=== PATIENT | male | born 1985 | race Caucasian/White ===

== ENCOUNTER 2018-01-08 15:27 | Emergency (ER) | payer MEDICAID, SELFPAY ==
--- NOTE | 2018-01-08 15:20 | RAD_ITS ---
STUDY: X-RAY - RIGHT HAND REASON FOR EXAM: Male, 32 years old. Worsening proximal second and third metacarpal pain after injury. TECHNIQUE: 3 view(s) of the hand. COMPARISON: None. FINDINGS: Normal radiocarpal articulation. Normal distal radioulnar joint. Normal visualized carpal bones. Normal carpal articulations Normal carpometacarpal articulation of the thumb. Normal second through fifth carpometacarpal joints. Normal metacarpi. Normal metacarpophalangeal joint of the thumb. Normal interphalangeal joint of the thumb. Normal proximal and distal phalanges of the thumb. Normal metacarpophalangeal joints of the second through fifth fingers. Normal proximal and distal interphalangeal joints of the second through fifth fingers. Normal phalanges of the second through fifth fingers. There is minor dorsal soft tissue swelling along the heads of the metacarpals as well as minor soft tissue swelling of the second and third fingers. There is no demonstrated osseous destructive lesion or fracture. RAD/Hand Min 3 Views IMPRESSION: No acute osseous abnormality of the right hand. Electronically Signed: Jason Henry MD at 16:16 EST , Service support ,
[2018-01-08 15:29] VITALS: BP 121/73; PULSE 61; RESP 16; TEMP 36.6; O2SAT 97; BMI 21.9
--- NOTE | 2018-01-08 16:47 | ED.VISSUMM ---
- ER Visit Summary Date of Service: 01/08/18 Chief Complaint: [Pain right hand] History of Present Illness: The patient is a 32 M [presents with pain since yesterday to his right hand. Patient states that he was moving 5 days ago and is not sure if he bumped it or injured it at that time. Patient is right-hand dominant. Patient also had a fracture a year ago in the similar area of his pain.] Physical Examination: [Hand-patient has tenderness over the dorsum of the proximal hand and wrist. There is no significant soft tissue swelling noted or erythema. There is no warmth noted. Patient has pain with flexion extension at the wrist. He is neurovascular intact distally.] Test Results: [X-ray ordered in triage of the right hand showed nothing acute.] Emergency Department Course and Treatment: [Patient will be given a wrist splint. Patient also given a prescription for Naprosyn and a few [place] for severe pain.] Treatment Plan: [Patient to follow-up with primary care physician aeronautical design engineer for no doc within the next 5-7 days.] Disposition: [Discharged to home in stable condition. Patient advised to return if increasing pain, swelling, or condition should worsen in any way.] Impression: [Right hand/wrist pain-suspect tendinitis/soft tissue injury.] This note was generated with [employer] dictation software. It may contain incorrect words, spelling, and punctuation that were not noted in review of the chart prior to signing ED Disposition - Plan for ED Patient: Chief Complaint: Upper Extremity Injury Referrals: Care Physician,No Primary [Primary Care Provider] -
--- NOTE | 2018-01-08 16:50 | ED.DCSUM_ITS ---
- ER Visit Summary Date of Service: 01/08/18 Chief Complaint: [Pain right hand] History of Present Illness: The patient is a 32 M [presents with pain since yesterday to his right hand. Patient states that he was moving 5 days ago and is not sure if he bumped it or injured it at that time. Patient is right-hand dominant. Patient also had a fracture a year ago in the similar area of his pain.] Physical Examination: [Hand-patient has tenderness over the dorsum of the proximal hand and wrist. There is no significant soft tissue swelling noted or erythema. There is no warmth noted. Patient has pain with flexion extension at the wrist. He is neurovascular intact distally.] Test Results: [X-ray ordered in triage of the right hand showed nothing acute.] Emergency Department Course and Treatment: [Patient will be given a wrist splint. Patient also given a prescription for Naprosyn and a few [place] for severe pain.] Treatment Plan: [Patient to follow-up with primary care physician component assembler supervisor for no doc within the next 5-7 days.] Disposition: [Discharged to home in stable condition. Patient advised to return if increasing pain, swelling, or condition should worsen in any way.] Impression: [Right hand/wrist pain-suspect tendinitis/soft tissue injury.] This note was generated with [employer] dictation software. It may contain incorrect words, spelling, and punctuation that were not noted in review of the chart prior to signing ED Disposition - Plan for ED Patient: Chief Complaint: Upper Extremity Injury Referrals: Care Physician,No Primary [Primary Care Provider] -
--- NOTE | 2018-01-08 16:52 | DCINST.ED_ITS ---
ED Disposition - Plan for ED Patient: Chief Complaint: Upper Extremity Injury Instructions: ED Sprain Wrist Prescriptions: Hydrocodone Bitart/Apap 5-325 [[place] 5/325] 1 - 2 tab PO Q4H PRN PRN 3 Days #12 tab PRN Reason: Pain Naproxen [Naprosyn] 500 mg PO BID PRN #20 tab Referrals: Care Physician,No Primary [Primary Care Provider] - Josy Swain MD [STAFF PHYSICIAN] - 5-7 Days
[2018-01-08 16:59] VITALS: BP 115/70; PULSE 65; RESP 14; O2SAT 99
== END 2018-01-08 17:13 | disposition home or self-care (01) ==
LOC: ED 17:02
PROVIDERS: Emergency Provider Emergency Medicine
DX: M79.641 Pain in right hand (principal); M25.531 Pain in right wrist; Z72.0 Tobacco use
CPT/HCPCS: 73130; 99283

== ENCOUNTER 2018-02-18 14:05 | Emergency (ER) | payer MEDICAID, SELFPAY ==
[2018-02-18 14:06] VITALS: BP 116/71; PULSE 76; RESP 20; TEMP 36.7; O2SAT 94; BMI 20.6
[2018-02-18] MEDS: Albuterol 2.5 MG/3 ML VIAL.NEB. INHALATION (14:37)
[2018-02-18 14:38] VITALS: PULSE 72; RESP 20
--- NOTE | 2018-02-18 14:40 | RAD_ITS ---
STUDY: X-RAY CHEST REASON FOR EXAM: Male, 32 years old. 2 day history of shortness of breath. 5 day history of cough. TECHNIQUE: PA and lateral views of the chest. COMPARISON: Comparison is made with prior study dated August 07, 2017. FINDINGS: Hyperinflation. Increased markings in the right upper lobe suggestive of early right upper lobe infiltrate. Follow-up is recommended. There is no demonstrated pleural abnormality. Normal size heart. Normal mediastinum and sheron. Normal visualized pulmonary arteries. Normal visualized aortic arch and descending thoracic aorta. There is demineralization of the osseous structures. Normal visualized ribs, clavicles, and shoulders. There is no demonstrated abnormality of the visualized soft tissue structures of the upper abdomen. RAD/Chest PA and Lateral IMPRESSION: Increased markings in the right upper lobe suggestive of early right upper lobe infiltrate. Follow-up is recommended. Electronically Signed: Richie Stevens MD at 15:08 EDT Tel [phone], Service support ,
--- NOTE | 2018-02-18 15:03 | ED.VISSUMM ---
- ER Visit Summary Date of Service: 02/18/18 Chief Complaint: Cough History of Present Illness: The patient is a 32 M with no primary care physician. He reports his cough began 5 days ago. Is productive green sputum without blood. He denies any fever. Reports he has chest pain with coughing only. Reports that he has had mild shortness of breath and has been wheezing. He does not have an inhaler. States this is similar to when he had bronchitis in the past. Physical Examination: Vitals: Stable. Afebrile. General: Well-nourished and well-developed. Head: Normocephalic atraumatic. Neck: Supple, no lymphadenopathy. No JVD. Nontender. Cardiovascular: Regular rate and rhythm. No murmurs. Respiratory: No respiratory distress. Mild wheezing bilaterally with good air movement. Abdominal: Soft, nontender, nondistended, normal bowel sounds. No guarding, rebound, or peritoneal signs. Back: Nontender. Extremities: Nontender, no edema. Skin: Normal color, no rash. Neurologic: Alert and oriented ?3. Cranial nerves II through XII are intact. Normal strength and sensation. Psych: Normal affect. Test Results: Chest x-ray is read by me is normal. Radiologist comments that there is increased markings in the right upper lobe suggestive of early right upper lobe infiltrate. I do not appreciate any increased markings here. Emergency Department Course and Treatment: Patient was treated with albuterol aerosol and is resting comfortably. Treatment Plan: Patient will be discharged with prescription for albuterol MDI and prednisone. [facility]7 days if not improving. Return to the emergency department for any worsening symptoms. Disposition: To home in improved and stable condition. Impression: 1. URI. 2. History of asthma. This note was generated with [employer] dictation software. It may contain incorrect words, spelling, and punctuation that were not noted in review of the chart prior to signing ED Disposition - Plan for ED Patient: Disposition: Home or Assisted Living Chief Complaint: Shortness of Breath Instructions: ED Upper Resp Infec No Abx Tx Prescriptions: Albuterol Inhaler [Ventolin Hfa] 1 - 2 puff INHALATION Q4H PRN PRN #1 inhaler PRN Reason: Wheezing Prednisone [Deltasone] 60 mg PO DAILY #15 tablet Referrals: Eliane Haas [NON-STAFF] - 1 Week if not improving
[2018-02-18 15:13] VITALS: BP 113/72; PULSE 97; RESP 18; TEMP 36.6; O2SAT 93
== END 2018-02-18 15:15 | disposition home or self-care (01) ==
PROVIDERS: Emergency Provider Emergency Medicine
DX: J06.9 Acute upper respiratory infection, unspecified (principal); J45.909 Unspecified asthma, uncomplicated; Z72.0 Tobacco use
CPT/HCPCS: 71046; 94640; 99282

== ENCOUNTER → 2018-05-06 14:45 | Outpatient (CLI) | payer MEDICAID, SELFPAY ==
--- NOTE | 2018-05-06 14:47 | RAD_ITS ---
STUDY: X-RAY - RIGHT WRIST REASON FOR EXAM: Male, 32 years old. Pain following a fall. TECHNIQUE: 3 view(s) of the wrist were obtained. COMPARISON: None. FINDINGS: Normal visualized distal radius and ulna. Normal radiocarpal articulation. Normal distal radioulnar articulation. Normal carpal bones. Normal carpal articulations. Normal carpometacarpal articulation of the thumb. Normal second through fifth carpometacarpal articulations. Normal visualized metacarpal bones. The soft tissue structures are unremarkable. RAD/Wrist min 3 Views IMPRESSION: Normal x-ray examination of the wrist. Electronically Signed: Richie Stevens MD at 15:14 EDT Tel [phone], Service support ,
== END ==
PROVIDERS: Visit Provider Physician Assistant Surgical
DX: S66.911A Strain of unspecified muscle, fascia and tendon at wrist and hand level, right hand, initial encounter (principal)
CPT/HCPCS: 73110

== ENCOUNTER 2019-04-07 10:33 | Emergency (ER) | payer MEDICAID, SELFPAY ==
[2018-10-13 11:24] VITALS: BMI 20.7
[2019-04-07 10:34] VITALS: BP 126/79; PULSE 69; RESP 18; TEMP 36.6; O2SAT 98; BMI 19.8
--- NOTE | 2019-04-07 10:59 | ED.VISSUMM ---
- ER Visit Summary Date of Service: 04/07/19 Chief Complaint: Cat bite History of Present Illness: The patient is a 33 M with no primary care physician. He reports that he was bit to his right thumb by a cat approximately 1 week ago. He states that he continues to have a throbbing pain is 10-10 severity. Is worsened by nothing. Is relieved by popping it. He denies any numbness. He is right-hand dominant. His tetanus is up-to-date. Does complain of subjective fever. He denies any other constitutional symptoms. No chills, nausea, or vomiting. Physical Examination: Vitals: Stable. Afebrile. General: Well-nourished and well-developed. Head: Normocephalic atraumatic. Neck: Supple, no lymphadenopathy. No JVD. Nontender. Cardiovascular: Regular rate and rhythm. No murmurs. Respiratory: No respiratory distress. Clear to auscultation bilaterally. Abdominal: Soft, nontender, nondistended, normal bowel sounds. No guarding, rebound, or peritoneal signs. Back: Nontender. Extremities: Mild edema of the distal phalanx of his left thumb. Is moderately tender to palpation. There is no erythema. There is no evidence of a felon. He does have an approximately 10% subungual hematoma.. Skin: Normal color, no rash. Neurologic: Alert and oriented ?3. Cranial nerves II through XII are intact. Normal strength and sensation. Psych: Normal affect. Emergency Department Course and Treatment: Patient was treated with Augmentin and naproxen. There is not enough of a subungual hematoma to warrant trephination. Treatment Plan: Patient be discharged on Augmentin and naproxen. Instructed to follow-up Dr. Oliver in 2 days for a wound check. Return to the emergency department for any worsening symptoms. Disposition: To home in improved and stable condition. Impression: 1. Cat bite left thumb. This note was generated with [employer] dictation software. It may contain incorrect words, spelling, and punctuation that were not noted in review of the chart prior to signing ED Disposition - Plan for ED Patient: Disposition: Home or Assisted Living Instructions: ED Bite Cat Prescriptions: Amox/Clavulanate Tablet [Augmentin Tablet] 875 mg PO Q12H #20 tablet Naproxen [Naprosyn] 500 mg PO BID #14 tablet Referrals: Reyna Oliver DO [STAFF PHYSICIAN] - 2 Days for wound check
[2019-04-07] MEDS: Amox/Clavulanate 875 MG Tablet PO (11:12)
[2019-04-07] MEDS: Naproxen 500 MG Tablet PO (11:12)
== END 2019-04-07 11:26 | disposition home or self-care (01) ==
PROVIDERS: Emergency Provider Emergency Medicine
DX: S61.151A Open bite of right thumb with damage to nail, initial encounter (principal); Z72.0 Tobacco use; W55.01XA Bitten by cat, initial encounter; Y93.89 Activity, other specified; Y92.89 Other specified places as the place of occurrence of the external cause; Y99.8 Other external cause status
CPT/HCPCS: 99283

== ENCOUNTER 2021-04-08 10:11 | Emergency (ER) | payer MEDICAID, SELFPAY ==
[2021-01-11 09:35] VITALS: BMI 19.8
[2021-04-08 10:11] VITALS: BP 108/60; PULSE 56; RESP 18; TEMP 36.6; O2SAT 99; BMI 21.2
--- NOTE | 2021-04-08 10:29 | EDS_ITS ---
HPI History of Present Illness Chief Complaint: Nausea/Vomiting Detail of Chief Complaint: Vomiting that started at 5 AM Informant: patient Onset/Context/Timing Onset: Today Narrative Narrative: Patient presents to the emergency department with vomiting that started around 5 AM this morning. Patient states that he has vomited countless times now having mostly just dry heaves. He denies any abdominal pain. He had one episode of diarrhea this morning. He denies sick contacts. Patient states that every couple months he will have episodes of vomiting that last a couple of hours and then resolves. Patient denies alcohol use last night. He denies illicit drug use. Patient denies fever or recent illness otherwise. Patient has no medical history otherwise. No abdominal surgeries. Prior similar symptoms: Yes PFSH PFSH Medical History (Updated 04/08/21 @ 11:[address] Javier Dwyer, ) Asthma Back pain Difficulty balancing Knee pain Limb weakness Neck pain SOB (shortness of breath) Home Medications ondansetron 4 mg PO Q8H PRN PRN #10 tab 04/08/21 [Rx Last Taken Unknown] Allergy/AdvReac Type Severity Reaction Status Date / Time ceftriaxone [From Rocephin] AdvReac Hives Verified 04/08/21 10:12 tramadol [From Ultram] AdvReac Hives Verified 04/08/21 10:12 Family History Other Cancer Surgical History Hx of eye surgery Social History (Updated 10/13/18 @ 11:43 by Andrew DOMINGUEZ, PA) Smoking Status: Current every day smoker ROS ROS ED Constitutional Constitutional ED: Reports systems reviewed and no addt'l complaints, except as documented; Denies body ache(s), change in weight or chills Eyes Eyes: Denies acute decrease in peripheral vision, change in vision, double vision or loss of vision ENT ENT ED: Reports none; Denies ear pain, lip swelling, loss taste/smell, neck pain, otalgia or sore throat Cardiovascular Cardiovascular: Reports none; Denies abdominal pain, chest pain with activity, leg edema, lightheadedness, palpitations, rapid heart rate or syncope Respiratory/Chest Respiratory/Chest: Reports none; Denies change in mental status, dry cough, dyspnea, hemoptysis, shortness of breath at rest or shortness of breath with exertion Gastrointestinal Gastrointestinal: Reports diarrhea, nausea and vomiting Genitourinary Genitourinary ED: Denies hematuria or urinary frequency Musculoskeletal Musculoskeletal: Reports none; Denies arthralgias, back pain, difficulty walking, extremity pain, muscle weakness or myalgias Integumentary Reports none; Denies abscess or rash Neurologic Neurologic: Reports none; Denies abnormal gait, confusion, focal weakness, frequent falls, headache(s), loss of vision, numbness, paresthesias, radicular pain, vertigo or weakness Psychiatric Psychiatric: Reports systems reviewed and no addt'l complaints, except as documented and none; Denies behavioral changes, confusion, difficulty concentrating, hallucinations, suicidal ideation, tactile hallucinations or visual hallucinations Endocrine Endocrinology: Denies none, cold intolerance, excessive sweating, fatigue or heat intolerance Hematologic/Lymphatic Hematologic/Lymphatic: Reports none; Denies anemia, easy bleeding or easy bruising Allergic/Immunologic Allergic/Immunologic ED: Denies as per HPI, none, lip swelling, mouth swelling, throat swelling, tongue swelling or hives EXAM Physical Exam Const Vital Signs: 04/08/21 10:11 Temperature 97.8 F Temperature Source Temporal Pulse Rate 56 L Respiratory Rate 18 Blood Pressure 108/60 Blood Pressure Mean 76 Pulse Ox 99 Oxygen Delivery Method Room Air Positive well nourished and well developed General Appearance ED: well developed and NAD HEENT Reports TM's clear and moist mucous membranes normocephalic and atraumatic; Negative for trauma or tenderness Tympanic Membrane ED: Yes TM's clear Eyes PERRL and EOMs intact bilaterally General Eye ED: Negative for pale conjunctiva or scleral icterus Neck no lymphadenopathy, supple and no JVD General: Negative for tenderness Chest Wall inspection of chest normal and palpation of chest normal Chest: Negative for tenderness Resp normal respiratory effort and clear to auscultation bilaterally Effort and Inspection: Negative for respiratory distress or pain with movement Auscultation: Negative for rhonchi, wheezes or diminished lung sounds Cardio regular rate, regular rhythm, S1 normal heart sound, S2 normal heart sound and no murmurs Peripheral Pulses: pulses 2+ throughout GI normal to inspection, nondistended, normoactive bowel sounds, soft to palpation, non-tender, non-distended and no masses Back/Spine no CVA tenderness and no thoracic nor lumbar tenderness Extremity normal to inspection General Extremety ED: Negative for edema General Extremity: Negative for edema Neuro oriented x3, CN's II-XII intact bilaterally, no sensory deficits noted and gait normal Sensorium / Orientation: awake, alert, oriented to person, oriented to place and oriented to time Motor Exam: strength 5/5 throughout and strength abnormal Psych mental status grossly normal Skin no rashes or lesions noted and no wounds MDM MDM MDM Narrative Medical decision making narrative: Patient received a liter fluid bolus as well as Reglan and Benadryl and he had no further vomiting. Patient was able to tolerate a p.o. challenge. At this point I recommended that they follow-up with a office machine technician and primary care physician. Apparently the symptoms have been ongoing intermittently for the last 10 years. I suspect possibility of cyclic vomiting type syndrome. Patient will receive a prescription for Zofran ODT. I advised to return if persistent vomiting, dehydration, abdominal pain, or condition should worsen anyway. Lab Data Attestation: I reviewed the patient's lab results. Labs: Laboratory Results - last 24 hr 04/08/21 04/08/21 10:40 10:40 WBC 9.9 RBC 4.97 Hgb 15.8 Hct 43.1 MCV 86.7 MCH 31.8 MCHC 36.7 H RDW Std Deviation 36.5 RDW Coeff of Kevyn 11.5 L Plt Count 190 MPV 10.6 Immature Gran % (Auto) 0.400 Neut % (Auto) 81.9 H Lymph % (Auto) 12.9 L [place] % (Auto) 4.2 Eos % (Auto) 0.2 Baso % (Auto) 0.4 Absolute Neuts (auto) 8.1 H Absolute Lymphs (auto) 1.28 Nucleated RBC % 0 Sodium 140 Potassium 3.4 L Chloride 108 H Carbon Dioxide 22.0 Anion Gap 10 BUN 17 Creatinine 0.84 Estim Creat Clear Calc 112.35 Est GFR (MDRD) Af Amer 134 Est GFR (MDRD) Non-Af 111 BUN/Creatinine Ratio 20.2 H Glucose 125 H Calcium 9.2 Total Bilirubin 0.70 AST 24 ALT 27 Alkaline Phosphatase 64 Total Protein 7.4 Albumin 4.2 Globulin 3.2 Albumin/Globulin Ratio 1.3 Lipase 144 Discharge Plan Triage Chief Complaint: Nausea/Vomiting ED Provider: Javier Dwyer Dx/Rx/DC Orders Clinical Impression: Vomiting, Cyclic vomiting syndrome Instructions: ED Vomiting (Adult) Prescriptions: New ondansetron [ondansetron] 4 MG tablet 4 mg PO Q8H PRN PRN (Reason: Nausea) Qty: 10 RF: 0 Primary Care Provider: Care Physician,No Primary Referrals: Lucero Ferro MD [STAFF PHYSICIAN] - 3-5 Days Care Physician,No Primary [Primary Care Provider] - Disposition Disposition: Home, self care
[2021-04-08] MEDS: Metoclopramide 10 MG/2 ML Vial IV (10:42)
[2021-04-08] MEDS: DiphenhydrAMINE 50 MG/ML Syringe 25 MG IV (10:42)
[2021-04-08] MEDS: 0.9% Normal Saline 1,000 ML 1000 ML IV (10:42)
[2021-04-08 10:52] LABS: Absolute Lymphocyte Count 1.28 X10^3/uL (0.83-4.51); Absolute Neutrophil Count 8.1 X10^3/uL (2.0-7.7); Basophil# 0.04 X10^3/uL; Basophil% 0.4 % (0-1); Eosinophil# 0.02 X10^3/uL; Eosinophils% 0.2 % (0-5); Hematocrit 43.1 % (40-54); Hemoglobin 15.8 g/dL (13.0-16.5); Lymphocyte # 1.28 X10^3/ul (0.83-4.51); Lymphocyte % 12.9 % (19-41); Mean Corp Hgb Conc 36.7 g/dL (32-36); Mean Corpuscular Hgb 31.8 pg (27.0-32.0); Mean Corpuscular Volume 86.7 fL (80-94); Mean Platelet Vol. 10.6 fl (6.2-12.0); Monocyte# 0.42 X10^3/uL; Monocyte% 4.2 % (0-10); NRBC Flagged by Analyzer 0 % (0-5); Neutrophil # 8.14 X10^3/uL (2.7-7.7); Neutrophil % 81.9 % (47-70); Platelet Count 190 K/mm3 (150-450); RBC Distribution Width CV 11.5 % (11.6-14.6); RBC Distribution Width SD 36.5 fl (35.1-43.9); Red Blood Count 4.97 M/mm3 (4.6-6.2); White Blood Count 9.9 K/mm3 (4.4-11.0)
[2021-04-08 11:08] LABS: ALB/GLOB Ratio 1.3 RATIO (0.9-2.4); AST(SGOT) 24 U/L (15-37); Alanine Aminotransfer ALT/SGPT 27 U/L (16-61); Albumin, Serum 4.2 g/dL (3.2-5.0); Alkaline Phosphatase 64 U/L (45-117); Anion Gap 10 (5-15); BUN 17 mg/dL (7-18); BUN/Creat Ratio 20.2 RATIO (10-20); Calcium,Total 9.2 mg/dL (8.5-10.1); Chloride 108 mmol/L (98-107); Creatinine, Serum 0.84 mg/dL (0.70-1.30); EST Glomerular Filtration Rate 111 mL/min (>60); Est Glom Filt Rate - Afr Amer 134 mL/min (>60); Estimated Creatinine Clearance 112.35 ml/min; Globulin 3.2 g/dL (2.2-4.2); Glucose 125 mg/dL (74-106); Lipase 144 U/L (73-393); Potassium 3.4 mmol/L (3.5-5.1); Protein, Total 7.4 g/dL (6.4-8.2); Sodium Level 140 mmol/L (136-145)
[2021-04-08 11:40] VITALS: BP 138/74; PULSE 81; RESP 16; O2SAT 97
== END 2021-04-08 11:41 | disposition home or self-care (01) ==
LOC: ED 11:34
PROVIDERS: Emergency Provider Emergency Medicine
DX: R11.15 Cyclical vomiting syndrome unrelated to migraine (principal); F17.200 Nicotine dependence, unspecified, uncomplicated
CPT/HCPCS: 80053; 83690; 85025; 96374; 96375; 99283; J7030

== ENCOUNTER → 2025-07-02 | Outpatient (CLI) | payer MEDICAID, SELFPAY ==
[2025-07-02 12:21] LABS: Hematocrit 47.0 % (40-54); Hemoglobin 17.0 g/dL (13.0-16.5); Immature Granulocytes Count 0.010 X10^3/uL (0.0-0.0); Mean Corp Hgb Conc 36.2 g/dL (32-36); Mean Corpuscular Volume 89.2 fL (80-94); Mean Platelet Vol. 10.0 fl (6.2-12.0); NRBC Flagged by Analyzer 0 % (0-5); Platelet Count 217 K/mm3 (150-450); RBC Distribution Width CV 12.2 % (11.6-14.6); RBC Distribution Width SD 39.9 fl (35.1-43.9); Red Blood Count 5.27 M/mm3 (4.6-6.2); White Blood Count 6.8 K/mm3 (4.4-11.0)
[2025-07-02 13:08] LABS: AST(SGOT) 27 U/L (<=37); Alanine Aminotransfer ALT/SGPT 20 U/L (<=46); Albumin, Serum 4.6 g/dL (3.5-5.0); Alkaline Phosphatase 65 U/L (40-129); Anion Gap 14 (5-15); BUN 15 mg/dL (4-19); BUN/Creat Ratio 15.7 RATIO (10-20); Calcium,Total 9.7 mg/dL (7.6-11.0); Carbon Dioxide 21.0 mmol/L (21.0-32.0); Chloride 101 mmol/L (98-108); Cholesterol 177 mg/dL (<=200); Globulin 3.1 g/dL (2.2-4.2); Glucose 83 mg/dL (70-99); Low Density Lipoprotein Calc. 121 mg/dL; Potassium 4.1 mmol/L (3.3-5.1); Triglycerides 71 mg/dL; Very Low Density Lipoprotein 14 mg/dL (5-40); Vitamin B12 576 pg/mL (180-914); Vitamin D,25 Hydroxy 37.6 ng/mL (30-100); cholesterol:hdl ratio screen 4.22
== END | disposition home or self-care (01) ==
LOC: VSLAB 10:52
PROVIDERS: PCP Nurse Practitioner Family; Visit Provider Nurse Practitioner Family
DX: Z13.220 Encounter for screening for lipoid disorders (principal); Z13.1 Encounter for screening for diabetes mellitus; R53.83 Other fatigue
CPT/HCPCS: 36415; 80053; 80061; 82306; 82607; 83036; 84439; 84443; 85025